=== PATIENT | female | born 1980 | race Caucasian/White ===

== ENCOUNTER → 2022-05-02 | Outpatient (CLI) | payer OTHER ==
[~2022-05-02] MED LIST: RT-ALBUTEROL SULF 2.5 MG/3 ML PRE-MIX VIAL INH ONE
== END ==
LOC: RT 13:26
PROVIDERS: ATTEND Nurse Practitioner Family
DX: J45.20 Mild intermittent asthma, uncomplicated (principal)
CPT/HCPCS: 94060; 94726; 94729

== ENCOUNTER 2022-07-09 14:35 | Outpatient (CLI) | payer OTHER | END 2022-07-09 15:05 | LOC: SLEEP 14:35 | PROVIDERS: ATTEND Nurse Practitioner Family | DX: G47.9 Sleep disorder, unspecified (principal) | CPT/HCPCS: G0399 ==

== ENCOUNTER 2022-11-23 19:25 | Outpatient (CLI) | payer OTHER | END 2022-11-24 06:21 | disposition home or self-care (01) | LOC: SLEEP 19:25 | PROVIDERS: ATTEND Nurse Practitioner Family | DX: G47.33 Obstructive sleep apnea (adult) (pediatric) (principal) | CPT/HCPCS: 95811 ==